=== PATIENT | male | born 1950 | race Caucasian/White ===

== ENCOUNTER → 2020-04-11 | Outpatient (CLI) | payer OTHER, MEDICARE ==
[~2020-04-11] MED LIST: ASA5UEC PO; ATORVASTATIN CA40 MG PO; IRBESARTAN75 MG PO; VENTOLIN HFA 1818 GM INH
== END ==
LOC: SJCVC 14:06
PROVIDERS: ATTEND Internal Medicine Cardiovascular Disease
DX: I25.10 Atherosclerotic heart disease of native coronary artery without angina pectoris (principal); I10 Essential (primary) hypertension; E78.00 Pure hypercholesterolemia, unspecified; I65.23 Occlusion and stenosis of bilateral carotid arteries

== ENCOUNTER → 2020-08-15 | Outpatient (CLI) | payer OTHER | LOC: SJCVCIMAG 08:49 | PROVIDERS: ATTEND Internal Medicine Cardiovascular Disease | DX: I65.23 Occlusion and stenosis of bilateral carotid arteries (principal); I25.10 Atherosclerotic heart disease of native coronary artery without angina pectoris; E78.00 Pure hypercholesterolemia, unspecified; I10 Essential (primary) hypertension; E78.5 Hyperlipidemia, unspecified; Z79.82 Long term (current) use of aspirin; Z79.899 Other long term (current) drug therapy ==